=== PATIENT | female | born 1995 | race Caucasian/White ===

== ENCOUNTER 2017-03-19 16:55 | Emergency (ER) | payer OTHER ==
[2017-03-19 17:05] VITALS: BP 150/85
--- NOTE | 2017-03-19 17:28 | ERNOTE ---
Abdominal HPI - Narrative Date of Service: 03/19/17 - General Chief Complaint: Abdominal Pain Time Seen by Provider: 03/19/17 17:11 Source: patient, family, RN/MD, RN notes reviewed Exam Limitations: no limitations - Immun/Allergies/Home Medications Immunizatons: IMMUNIZATION HX Immunizations Up to Date Yes Allergies/Adverse Reactions: Allergies No Known Allergies Allergy (Unverified 03/19/17 17:05) Home Medications: HOME MEDICATIONS NK [No Home Medication] 03/19/17 [Last Taken Unknown] - Pain Score Pain Score #1 Pain Score: 0 - History of Present Illness Narrative: 21 year old female brought to the ED by her mother as instructed by staff from her PCP's office. The patient began having RLQ abdominal pain 2 days ago. She was also having nausea. A CBC and pelvic US were done yesterday. The US was normal and her WBC was 6. They contacted the PCP's office for test results this afternoon and were informed that they were normal. Her pain resolved earlier in the afternoon. They were informed that the resolution of pain could indicate that her appendix may have ruptured so she should come here for evaluation. The patient denies any symptoms currently. She and her mother do not understand why they needed to be seen in the ER if her pain has went away. The patient was in her [place], hunting, when her mother informed her that she needed to be evaluated. Date (Duration): 03/17/17 Timing: resolved prior to arrival Associated Symptoms: Present: denies symptoms Prior Abdominal Problems: Present: none Review of Systems - Review of Systems Constitutional: Absent: fever, chills, malaise EYE: Present: no symptoms reported ENT: Absent: nose congestion, sore throat Respiratory: Absent: shortness of breath, cough Cardiology: Absent: chest pain, syncope Gastrointestinal/Abdominal: Absent: vomiting, diarrhea, constipation, abdominal pain, eating less, drinking less Genitourinary: Absent: frequency, dysuria Musculoskeletal: Absent: back pain, muscle pain Skin: Absent: rash, lesions, lumps Neurological: Absent: headache, dizziness/light-headedness Endocrine: Present: no symptoms reported Hematologic/Lymphatic: Present: no symptoms reported Psych: Absent: anxiety, depressed - Patient's Past Medical History Patient History - Medical: No pertinent hx Patient History - Cardiac/Respiratory: No pertinent hx Patient History - Cancer: No Hx of Cancer Patient History - Surgical Procedures: No surgical history Patient History - Other: None LMP (females 10-50): Nexplanon, irreg - Social History Living Situations: parents Smoking Status: Never smoker Have you smoked in the past 12 months: No - Immunizations Immunizations Up to Date: Yes Physical Exam - Physical Exam General Appearance: Present: wd/wn, alert, no apparent distress, cheerful Neck: Present: normal inspection, nontender, supple Respiratory: Present: no respiratory distress, normal breath sounds, no accessory muscle use, lungs clear Cardiovascular/Chest: Present: regular rate, rhythm, no murmur Gastrointestinal/Abdominal: Present: normal bowel sounds, nontender, nondistended, soft. Absent: guarding, rebound, mass Back Exam: Present: normal inspection, no CVA tenderness Extremity Exam: Present: normal inspection, normal range of motion Neurological Exam: Present: alert, oriented, normal mood/affect, no motor/ sensory deficits Skin Exam: Present: normal color, warm/dry ED Progress - Vital Signs Patient's Vital Signs:: I have reviewed the patient's vital signs. Vital Signs: Vital Signs 03/19/17 17:02 Temperature 36.8 C Pulse Rate 99 Respiratory 14 Rate Blood Pressure 150/85 O2 Sat by Pulse 98 Oximetry - Progress/Reassessment Chief Complaint: Abdominal Pain Progress:: Improved Plan - Plan Plan: Diagnostic testing deferred as the patient is no longer having symptoms. Discussed returning to the ED for new/worsening symptoms. Patient and her mother in agreement with plan. Departure Clinical Impression: Resolved abdominal pain - Departure Disposition: Home self-care Condition: Good Instructions: Appendicitis, [id number] Additional Instructions: Return to the ER if symptoms return/worsen Referrals: Melissa Shrestha MD [Primary Care Provider] -
== END 2017-03-19 17:30 | disposition home or self-care (01) ==
LOC: ER 16:55
DX: R10.9 Unspecified abdominal pain (principal)